=== PATIENT | female | born 1950 | race Caucasian/White ===

== ENCOUNTER 2019-10-08 13:59 | Emergency (ER) | payer OTHER, SELFPAY ==
[2019-10-08 14:05] VITALS: BP 155/64; PULSE 82; RESP 18; TEMP 36.7; O2SAT 97
--- NOTE | 2019-10-08 14:26 | ED.FEMALEGU ---
HPI - Female Genitourinary General Chief complaint: Urogenital-Female Stated complaint: frequent urination Time Seen by Provider: 10/08/19 14:26 Source: patient Mode of arrival: ambulatory Limitations: no limitations History of Present Illness HPI Narrative: Ailyn Mayer is a 68 yo female with a PMH of HTN, hypothyroid, GERD, bladder control issues,who comes to express care with complaints of urgency that started this morning. Patient has not had UTIs in the last few years. Will urgency today and started taking Azo but decided to come here-no back pain no fever no abdominal pain Related Data Home Medications Medication Instructions Recorded Confirmed diltiazem HCl 240 mg PO DAILY 10/08/19 10/08/19 irbesartan-hydrochlorothiazide 1 tablet PO DAILY 10/08/19 10/08/19 levothyroxine 50 mcg PO DAILY 10/08/19 10/08/19 pantoprazole 40 mg PO QAM 10/08/19 10/08/19 solifenacin [Vesicare] 5 mg PO DAILY 10/08/19 10/08/19 Allergies Allergy/AdvReac Type Severity Reaction Status Date / Time No Known Allergies Allergy Verified 10/08/19 14:20 Review of Systems Review of Systems: Narrative: CONSTITUTIONAL: Denies fever, chills, sweats. EYES: Denies visual changes, redness, discharge. ENT: Denies rhinorrhea, congestion, sore throat, otalgia. CARDIOVASCULAR: Denies chest pain, palpitations, edema. RESPIRATORY: Denies dyspnea, wheezing, cough GASTROINTESTINAL: Denies abdominal pain, nausea, vomiting, diarrhea. GENITOURINARY: Has dysuria, no hematuria, abnormal discharge SKIN: Denies rash or itching. NEUROLOGIC: Denies numbness, or focal weakness. PSYCHIATRIC: Denies anxiety or depression. [facility] Past Medical History Medical History Bacterial UTI GERD (gastroesophageal reflux disease) HTN (hypertension) Hypothyroid Lack of bladder control Family History Family History Other Alzheimer's dementia CHF (congestive heart failure) Social History Social History (Updated 10/08/19 @ 14:36 by Berenice Wright CNP) Smoking status: Former smoker Alcohol intake: current Comments At time of signature, I agree with nursing past medical, surgical, social and family history. There is no relevant family history pertinent to the presenting complaint. Exam Narrative: Exam Narrative: GENERAL: This is a well-nourished, well-developed patient, in mild distress. HEAD: normocephalic, atraumatic. EYES: Sclera clear/white. Vision is grossly intact. EARS: External ears normal, . Hearing grossly intact. NOSE: External nose normal without nasal discharge, nares without redness, no rhinorrhea. THROAT: Mucous membranes moist, NECK: Neck supple, non-tender CARDIOVASCULAR: Regular rate and rhythm without murmurs, gallops, or rubs. RESPIRATORY: Clear to auscultation. Breath sounds equal bilaterally. No wheezes, rales, or rhonchi. GASTROINTESTINAL: Abdomen soft, non-tender, SKIN: warm, intact with no suspicious lesions or rash, good texture and turgor. NEURO: awake, alert, and oriented to person, place and time. There were no obvious focal neurologic abnormalities. Steady gait EXTREMITIES: Normal range of motion. BACK: Nontender without deformity Course Course Emergency Course: UA-positive for protein blood nitrites and leukocyte esterase Started on Keflex Discussed hydration and follow-up with PCP Vital Signs Vital signs: Vital Signs Temperature 98.1 F 10/08/19 14:05 Pulse Rate 82 10/08/19 14:05 Respiratory Rate 18 10/08/19 14:05 Blood Pressure 155/64 H 10/08/19 14:05 Pulse Oximetry 97 10/08/19 14:05 Temperature 98.1 F 10/08/19 14:05 Pulse Rate 82 10/08/19 14:05 Respiratory Rate 18 10/08/19 14:05 Blood Pressure 155/64 H 10/08/19 14:05 Pulse Oximetry 97 10/08/19 14:05 MDM - Female Genitourinary Differential Diagnosis Differential diagnosis: Likely urinary tract infection, vagin
== END 2019-10-08 14:41 | disposition home or self-care (01) ==
PROVIDERS: Emergency Provider Nurse Practitioner
DX: N30.01 Acute cystitis with hematuria (principal); K21.9 Gastro-esophageal reflux disease without esophagitis; I10 Essential (primary) hypertension; E03.9 Hypothyroidism, unspecified; Z87.891 Personal history of nicotine dependence
CPT/HCPCS: 81003; 87077; 87086; 87088; 87186; 99213; G0463

== ENCOUNTER 2019-10-27 18:52 | Emergency (ER) | payer OTHER, SELFPAY ==
[2019-10-27 19:00] VITALS: BP 184/66; PULSE 69; RESP 18; TEMP 37.6; O2SAT 95
--- NOTE | 2019-10-27 19:12 | ED.FEMALEGU ---
HPI - Female Genitourinary General Chief complaint: Urogenital-Female Stated complaint: frequent urination/a little pain with urination Time Seen by Provider: 10/27/19 19:12 Source: patient Mode of arrival: ambulatory Limitations: no limitations History of Present Illness HPI Narrative: Ailyn Talley is a 68 yo female with a prior medical history UTI and hypertension, who comes to express care with complaints of frequency and urgency that started this afternoon she also has some mild dysuria. She was seen by her primary care physician since the last time that she was here, urine was clear. Patient states she finished her last antibiotic prescription. Presently has no nausea vomiting or fever, no back pain Related Data Home Medications Medication Instructions Recorded Confirmed diltiazem HCl 240 mg PO DAILY 10/08/19 10/27/19 irbesartan-hydrochlorothiazide 1 tablet PO DAILY 10/08/19 10/27/19 levothyroxine 50 mcg PO DAILY 10/08/19 10/27/19 pantoprazole 40 mg PO QAM 10/08/19 10/27/19 solifenacin [Vesicare] 5 mg PO DAILY 10/08/19 10/27/19 Allergies Allergy/AdvReac Type Severity Reaction Status Date / Time No Known Allergies Allergy Verified 10/27/19 18:59 Review of Systems Review of Systems: Narrative: CONSTITUTIONAL: Denies fever, chills, sweats. EYES: Denies visual changes, redness, discharge. ENT: Denies rhinorrhea, congestion, sore throat, otalgia. CARDIOVASCULAR: Denies chest pain, palpitations, edema. RESPIRATORY: Denies dyspnea, wheezing, cough GASTROINTESTINAL: Denies abdominal pain, nausea, vomiting, diarrhea. GENITOURINARY: Has dysuria, hematuria, no abnormal discharge SKIN: Denies rash or itching. NEUROLOGIC: Denies numbness, or focal weakness. PSYCHIATRIC: Denies anxiety or depression. [facility] Social History Social History (Updated 10/08/19 @ 14:36 by Berenice Wright CNP) Smoking status: Former smoker Alcohol intake: current Comments At time of signature, I agree with nursing past medical, surgical, social and family history. There is no relevant family history pertinent to the presenting complaint. Pt has a hx of HTN. Exam Narrative: Exam Narrative: GENERAL: This is a well-nourished, well-developed patient, in mild distress. HEAD: normocephalic, atraumatic. EYES:Sclera clear/white. Vision is grossly intact. EARS: External ears normal. Hearing grossly intact. NOSE: External nose normal without nasal discharge, nares without redness, no rhinorrhea. THROAT: Mucous membranes moist, NECK: Neck supple, CARDIOVASCULAR: Regular rate and rhythm without murmurs, gallops, or rubs. RESPIRATORY: Clear to auscultation. Breath sounds equal bilaterally. No wheezes, rales, or rhonchi. GASTROINTESTINAL: Abdomen soft, non-tender, complaining of pain in the genital area SKIN: warm, intact with no suspicious lesions or rash, good texture and turgor. NEURO: awake, alert, and oriented to person, place and time. There were no obvious focal neurologic abnormalities. Steady gait EXTREMITIES: Normal range of motion. BACK: Nontender without deformity Course Course Emergency Course: UA dip shows positive for blood and leukocyte esterase -sent for culture Patient was seen 3 weeks ago and completed a course of cephalexin so started on Cipro 500 3 times daily x5 days Patient to follow-up with primary care physician; recommended to increase hydration Vital Signs Vital signs: Vital Signs Temperature 99.6 F 10/27/19 19:00 Pulse Rate 69 10/27/19 19:00 Respiratory Rate 18 10/27/19 19:00 Blood Pressure 184/66 H 10/27/19 19:00 Pulse Oximetry 95 10/27/19 19:00 Temperature 99.6 F 10/27/19 19:00 Pulse Rate 69 10/27/19 19:00 Respiratory Rate 18 10/27/19 19:00 Blood Pressure 184/66 H 10/27/19 19:00 Pulse Oximetry 95 10/27/19 19:00 MDM - Female Genitourinary Differential Diagnosis Differential diagnosis: Likely urinary tract infection, cervicitis, cystitis and other Lab Data Labs:
== END 2019-10-27 19:22 | disposition home or self-care (01) ==
PROVIDERS: Emergency Provider Nurse Practitioner
DX: N30.01 Acute cystitis with hematuria (principal); I10 Essential (primary) hypertension; Z87.891 Personal history of nicotine dependence
CPT/HCPCS: 81003; 87077; 87086; 87088; 87186; 99213; G0463

== ENCOUNTER 2020-01-08 10:57 | Emergency (ER) | payer OTHER, SELFPAY ==
[2020-01-08 11:10] VITALS: BP 172/68; PULSE 82; RESP 20; TEMP 37.4; O2SAT 98
[2020-01-08 11:19] VITALS: BP 172/68; PULSE 82; RESP 20; TEMP 37.4; O2SAT 98
--- NOTE | 2020-01-08 11:38 | ED.FEMALEGU ---
HPI - Female Genitourinary General Chief complaint: Urogenital-Female Stated complaint: poss uti Time Seen by Provider: 01/08/20 11:21 Source: patient and RN notes reviewed Mode of arrival: ambulatory Limitations: no limitations History of Present Illness HPI Narrative: Patient presents today complaining of urinary frequency since this morning. Denies dysuria, hematuria, abdominal pain or flank pain. History of frequent UTIs. Was last treated with Cipro at [facility] in October and was switched to Macrobid by her urologist due to ineffectiveness. Review of her previous urine culture showed growth of E. coli with susceptibility throughout the culture results. Related Data Home Medications Medication Instructions Recorded Confirmed diltiazem HCl 240 mg PO DAILY 10/08/19 01/08/20 irbesartan-hydrochlorothiazide 1 tablet PO DAILY 10/08/19 01/08/20 levothyroxine 50 mcg PO DAILY 10/08/19 01/08/20 pantoprazole 40 mg PO QAM 10/08/19 01/08/20 atorvastatin 10 mg PO DAILY 01/08/20 01/08/20 dicyclomine 10 mg PO QID 01/08/20 01/08/20 gabapentin 300 mg PO HS 01/08/20 01/08/20 Allergies Allergy/AdvReac Type Severity Reaction Status Date / Time No Known Allergies Allergy Verified 01/08/20 11:15 Review of Systems Review of Systems: Narrative: CONSTITUTIONAL: Denies body aches, fever, chills, or sweats. EYES: Denies visual changes, redness, or discharge. ENT: Denies rhinorrhea, congestion, sore throat, or otalgia. CARDIOVASCULAR: Denies chest pain, palpitations, or edema. RESPIRATORY: Denies cough or dyspnea. GASTROINTESTINAL: Denies abdominal pain, nausea, vomiting, or diarrhea. GENITOURINARY: Denies dysuria or hematuria.+ Urinary frequency SKIN: Denies rash, itching, or wounds. MUSCULOSKELETAL: Denies back pain, joint pain, or myalgia. NEUROLOGIC: Denies headache, numbness, tingling, or weakness. PSYCH: Denies depression or anxiety. [facility] Past Medical History Medical History (Updated 01/08/20 @ 11:39 by Alysa Thomas, [employer], ) Bacterial UTI GERD (gastroesophageal reflux disease) HTN (hypertension) Hypothyroid Lack of bladder control Family History Family History Other Alzheimer's dementia CHF (congestive heart failure) Social History Social History (Updated 10/08/19 @ 14:36 by Berenice Wright CNP) Smoking status: Former smoker Alcohol intake: current Comments At time of signature, I have reviewed and agree with nursing past medical, surgical, social and family history unless otherwise noted. Please see nursing chart for further information. There is no relevant family history pertinent to the presenting complaint Exam Narrative: Exam Narrative: GENERAL: Well-appearing, well-nourished, and in no acute distress. HEAD: Normocephalic, atraumatic. EYES: EOMI. No redness or drainage. Conjunctivae normal. ENT: Mucous membranes pink and moist. NECK: Normal AROM. CHEST: No respiratory distress. Clear to auscultation. HEART: Regular rate and rhythm. No murmur appreciated. Normal peripheral pulses. ABDOMEN: Soft, nontender, nondistended, normal active bowel sounds.-CVAT MUSCULOSKELETAL: No bony tenderness. EXTREMITIES: Normal range of motion. No edema. SKIN: Warm, dry, no rash. Capillary refill normal. Normal skin turgor. NEURO: No focal deficits. Alert and oriented x3. Gait steady. PSYCH: Normal affect. No signs of depression or anxiety. Course Vital Signs Vital signs: Vital Signs Temperature 99.4 F 01/08/20 11:10 Pulse Rate 82 01/08/20 11:10 Respiratory Rate 01/08/20 11:10 Blood Pressure 172/68 H 01/08/20 11:10 Pulse Oximetry 98 01/08/20 11:10 Temperature 99.4 F 01/08/20 11:19 Pulse Rate 82 01/08/20 11:19 Respiratory Rate 20 01/08/20 11:19 Blood Pressure 172/68 H 01/08/20 11:19 Pulse Oximetry 98 01/08/20 11:19 Reviewed. Pt has been instructed to follow up with her PCP regarding her elevated b
== END 2020-01-08 11:47 | disposition home or self-care (01) ==
PROVIDERS: Emergency Provider Nurse Practitioner
DX: N30.01 Acute cystitis with hematuria (principal); K21.9 Gastro-esophageal reflux disease without esophagitis; I10 Essential (primary) hypertension; E03.9 Hypothyroidism, unspecified; Z87.891 Personal history of nicotine dependence
CPT/HCPCS: 81003; 87077; 87086; 87088; 87186; 99213; G0463